=== PATIENT | male | born 1960 | race Caucasian/White ===

== ENCOUNTER → 2020-10-16 | Outpatient (CLI) | payer BC ==
--- NOTE | 2020-10-17 07:59 | XR ---
EXAMINATION TYPE: XR abdomen 2V DATE OF EXAM: 10/16/2020 COMPARISON: NONE HISTORY: Pain TECHNIQUE: Single supine KUB image of the abdomen is obtained FINDINGS: Small bowel demonstrates no evidence for dilatation or air fluid levels. Gas and fecal material is seen in non-distended colon. No convincing evidence for pneumoperitoneum. Moderate fecal stasis noted. No unusual calcifications. The lung bases are clear. The osseous structures are intact. IMPRESSION: 1. Overall nonobstructive bowel gas pattern.
== END | disposition home or self-care (01) ==
LOC: RADXRMAIN 15:53
PROVIDERS: ATTEND Family Medicine
DX: R11.0 Nausea (principal)
CPT/HCPCS: 74019

== ENCOUNTER → 2020-10-21 | Outpatient (CLI) | payer BC | END | disposition home or self-care (01) | LOC: LABWHC1 16:09 | PROVIDERS: ATTEND Family Medicine | DX: Z20.828 Contact with and (suspected) exposure to other viral communicable diseases (principal) | CPT/HCPCS: U0003; C9803 ==

== ENCOUNTER → 2022-06-18 | Outpatient (CLI) | payer BC ==
--- NOTE | 2022-06-18 14:05 | P.SLEEP ---
History of Present Illness DATE: 06/18/2022 CONSULTATION/NEW PATIENT EVALUATION HISTORY OF PRESENT ILLNESS/SLEEP-WAKE EVALUATION: 61year old gentleman had been evaluated in the sleep center for possible obstructive sleep apnea hypopnea syndrome.Patient has history of obstructive sleep apnea hypopnea syndrome diagnosed in another institution in 2019 at that time results of home sleep apnea test showed apnea-hypopnea index 25.7 later patient had the CPAP titration which was not fully effective then he was recommended to use BiPAP machine. Last testing done about 2 years ago. SLEEP SCHEDULE: Usually sleep schedule on [id number] PM to 6 AM[], during days o 11 PM to 8 AM[]. FALLING ASLEE Usually no problems with the falling asleep, although patient says TV set and bedroom[]. DURING SLEEPPatient snores and wakes up from sleep once with the nocturia[] No history of hypnogogical hallucinations, sleep paralysis, or cataplexy. DURING THE DAY/WAKE STAT In the morning patient wake up tired[]. [place] sleepiness scale 2. Patient may take 1 nap around known time.[]. PAST MEDICAL HISTOR Hypertension, arthritis[]. PAST SURGICAL HISTOR Appendectomy, tonsillectomy, cholecystectomy[]. MEDICATION Cozaar, Pravachol[]. SOCIAL HISTOR Negative for ] smoking, alcohol consumption occasional. FAMILY HISTORYHypertension, Parkinson disease, cancer[]. REVIEW OF SYSTEMSSnoring, awakenings from sleep, feeling sleepiness during the day[]. No fevers. No double vision. No recent chest pain. No shortness of breath. No abdominal pain. No bleeding episodes. No blood in urine. No seizure episodes. PHYSICAL EXAMINATION: GENERAL: A pleasant patient without any distress. VITAL SIGNS: 145/88] , 80] , 14] , weig 176.4 ] pounds, heig 5 foot 3 three-quarter inches []foot[]inches, body mass ind 30.4] . HEENT: PERRLA, EOMI. Evaluation of oropharynx showed tongue protrudes midline, low position of soft palate [place] 3, white pillars[]. NECK: Supple. No JVD. Thyroid is not palpabl 16 ] inches in circumference. LUNGS: Clear to percussion and to auscultation. Good air exchange. No wheezing or rhonchi. HEART: S1, S2 regular. No murmurs, gallops or rubs. ABDOMEN: Soft and nontender. Bowel sounds are present. No organomegaly appreciated. EXTREMITIES: No clubbing or cyanosis. STEEL LOADER: Awake, alert, and oriented x3. Cranial nerves 2 to 7 intact. There is no fasciculation or atrophy noted. No focal deficits observed. ASSESSMENT: Snoring, small oropharyngeal airspace. History of obstructive sleep apnea hypopnea syndrome diagnosed with another institution 2 years ago obstructive sleep apnea hypopnea syndrome[]. 2Mild obesity body mass index 30.4[]. 3. hypertension[]. 4. History of arthritis[]. 5.status post tonsillectomy[]. 6. Status post cholecystectomy[]. 7. Status post appendectomy[]. PLAN: 1. Home sleep apnea test for evaluation of patient's breathing during sleep at the present time . 2. CPAP/BiPAP titration if sleep study confirms obstructive sleep apnea- hypopnea syndrome. 3. Preferable position during sleep on the side. 4. No driving if patient feels any sleepiness. Patient is aware of civil and criminal liability for unsafe driving. 5. Sleep hygiene with regular sleep time for at least 7.5-8 hours. 6. Watching weight. Thank you very much for referring this patient for consultation. Sincerely, Reece Metcalf MD, PhD, FAASM. Diplomat of [place] [employer], Sleep Medicine Board by [place] [employer] [place] [employer] Medicine Micro Computer Data Processor of [facility] [place] Sleep Note - Sleep Note Sleep Note: Temperature: Pulse Rate: Respiratory Rate: Blood Pressure: SpO2: Height: Weight: BMI: Neck Circumference:
== END ==
LOC: SLEEP 13:16
PROVIDERS: ATTEND Internal Medicine
DX: G47.33 Obstructive sleep apnea (adult) (pediatric) (principal); E66.9 Obesity, unspecified; Z68.30 Body mass index [BMI] 30.0-30.9, adult; I10 Essential (primary) hypertension; M19.90 Unspecified osteoarthritis, unspecified site; Z90.09 Acquired absence of other part of head and neck; Z90.49 Acquired absence of other specified parts of digestive tract
CPT/HCPCS: 99211

== ENCOUNTER → 2022-09-24 | Outpatient (CLI) | payer BC ==
--- NOTE | 2022-09-24 15:12 | P.PN ---
Subjective DATE: 09/24/2022 FOLLOW UP VISIT. Patient with obstructive sleep apnea hypopnea syndrome return to sleep center for follow-up visit. Recently patient had sleep study which documented obstructive sleep apnea hypopnea syndrome. Patient was initiated on PAP therapy and today is first visit after treatment was started. I explained results of sleep study to the patient in details. Patient was able to use PAP equipment every night for the whole night. The patient does not have significant problems with the mask, PAP pressure and humidification. [place] sleepiness scale is 3, which is perfect. I checked information from PAP unit. PAP unit pressure 5-13 cm H2O. Usage is 97 % for more then 4 hours, average 7.5 hours per night. Leak is 2.3 l/m, which is in acceptable range. Apnea Hypopnea Index is for the last 9 days less than 3, 2 weeks ago was more then 10. MEDICATIONS:1. Pravachol 2. Cozaar During physical exam: GENERAL: A pleasant patient without any distress. VITAL SIGNS: BP 136/85, HR 78, RR 16, weight 182.6, temperature 97.5, oxygen saturation at room air 96. HEENT: PERRLA, EOMI.low position of soft palate, Mallapati 3 . NECK: Supple. No JVD. LUNGS: Clear to percussion and to auscultation. Good air exchange. No wheezing or rhonchi. HEART: S1, S2 regular. ABDOMEN: Soft and nontender. Slightly obese EXTREMITIES: No clubbing or cyanosis. SEMICONDUCTOR MANUFACTURING TECHNICIAN: Awake, alert, and oriented x3. No focal deficit. Impressions: 1. Obstructive sleep apnea-hypopnea syndrome. Patient demonstrated great compliance with treatment, benefiting from treatment. 2. Mild obesity. 3. Hypertension. 4. History of arthritis. 5. Status post tonsillectomy. 6. Status post cholecystectomy. 7. Status post appendectomy. Plan: 1. Continue using PAP equipment every night for the whole night. I increased range of pressure to 5-15 centimeters of water. 2. To change air filter at least 1-2 times per month. 3. PAP unit should stay lower then position of the head. 4. Advised patient to remove all remaining water from humidifier canister daily and make it dry after each usage. Refill canister with fresh distilled water before each usage. 5. Sleep hygiene with regular time in bed for at least 8 hours. 6. Precautions related to driving. No driving if feel any sleepiness. 7. I will maintain prescription for PAP supplies including mask, tube, filters. 8. Follow up visit in 6 months or earlier if patient has any problems. 9. Watching weight. Thank you very much for allowing me to participate in the management of your patient. Reece Metcalf MD, PhD, FAASM. Diplomat of [place] Board of [employer] Medicine, Sleep Medicine Board by [place] [employer] Medicine Laminator Preforms of [facility] [place]
== END ==
LOC: SLEEP 14:13
PROVIDERS: ATTEND Internal Medicine
DX: G47.33 Obstructive sleep apnea (adult) (pediatric) (principal); E66.8 Other obesity; I10 Essential (primary) hypertension; Z87.39 Personal history of other diseases of the musculoskeletal system and connective tissue; Z90.89 Acquired absence of other organs; Z90.49 Acquired absence of other specified parts of digestive tract
CPT/HCPCS: 99212

== ENCOUNTER → 2023-02-03 | Outpatient (CLI) | payer BC | END | disposition home or self-care (01) | LOC: LABWHC1 08:57 | PROVIDERS: ATTEND Urology | DX: R97.20 Elevated prostate specific antigen [PSA] (principal) | CPT/HCPCS: 36415; 84153 ==

== ENCOUNTER → 2023-04-06 | Outpatient (CLI) | payer BC ==
--- NOTE | 2023-04-06 17:37 | MR ---
EXAMINATION TYPE: MR Prostate wo/w con DATE OF EXAM: 04/06/2023 9:52 AM COMPARISON: None.. CLINICAL INDICATION:Male, 62 years old with history of R97.20 ELEVATED PSA LEVEL; TECHNIQUE: Multi-planar, multi-sequence imaging of the pelvis is performed prior to and following the uncomplicated administration of bolus intravenous gadolinium. CONTRAST: 9 ml Gadavist Interpretive Criteria: PI-RADS v2.1 SERUM PSA: 3.5 02/03/2023 4.2 12/09/2022 4.9 11/26/2022 SURGICAL PATHOLOGY: No data available. FINDINGS: Prostatic dimensions: 5.0 x 4.6 x 3.7 cm. "Bullet" Volume: 55.70 (PSA density=0.06 ng/mL/mL) CENTRAL GLAND (Central and Transition Zones/CZ+TZ): Multiple bilateral, heterogenous appearing hypertrophic stromal nodules, without suspicious lesion. M edian lobe hypertrophy with protrusion into the base of the bladder. (PI-RADS 2) PERIPHERAL ZONE (PZ): The lateral aspect of the peripheral zone in the left mid gland demonstrates restricted diffusion wit h high DWI and low ADC signal measuring approximately 20 x 7 mm. This is associated with low T2 signa l and there is some arterial enhancement within this region as well. No evidence for extracapsular ex tension. This lesion does extend along the capsule at least 8 mm laterally possibly even more given s lice selection SEMINAL VESICLES (SV): Symmetric and unremarkable. PERIPROSTATIC TISSUES: Unremarkable. LYMPH NODES: No enlarged pelvic lymph node. REMAINING PELVIS: Bladder wall is within normal limits given distention. No abnormal free or organized intrapelvic fluid collection. No pathologic bowel dilation or mural thickening. The right testis is not definitively visualized. Left fat-containing inguinal hernia. OSSEOUS STRUCTURES: No suspicious osseous abnormality. IMPRESSION: 1. PI-RADS 5 lesion left mid gland peripheral zone. Measuring up to 20 x 7 mm. 2. Moderate BPH, estimated gland volume 55.70 mL.
== END | disposition home or self-care (01) ==
LOC: RADMRIMAIN 03-17 07:36
PROVIDERS: ATTEND Urology
DX: N40.0 Benign prostatic hyperplasia without lower urinary tract symptoms (principal); N42.89 Other specified disorders of prostate; R97.20 Elevated prostate specific antigen [PSA]
CPT/HCPCS: 72197; A9585

== ENCOUNTER → 2023-04-08 | Outpatient (CLI) | payer BC ==
--- NOTE | 2023-04-08 11:21 | P.PN ---
Subjective DATE: 04/08/2023 FOLLOW UP VISIT. Patient with obstructive sleep apnea hypopnea syndrome return to sleep center for follow-up visit. Information from previous visit have been reviewed. Patient is using PAP equipment every night for the whole night, getting PAP supplies in time. The patient does not have significant problems with the mask, PAP unit and humidification. [place] sleepiness scale is 3, which is normal. I checked information from PAP unit. PAP unit pressure 5-15, average 13.8 cm H2O. Usage is 97 % for more then 4 hours, average 7 hours per night. Leak is 0.3 l/m, which is perfect. Apnea Hypopnea Index is 7.6, which is slightly increased. Patient has occasional episodes of snoring. He increased weight. MEDICATIONS:1. Cozaar 25 mg once a day 2. Pravachol 40 mg once a day 3. Inderal 20 mg once a day 4. Lexapro 10 mg once a day During physical exam: GENERAL: A pleasant patient without any distress. VITAL SIGNS: BP 113/74, HR 59, RR 20 , weight 198.2, temperature 96.8, oxygen saturation at room air 97 % . HEENT: PERRLA, EOMI.low position of soft palate, Mallapati 3 . NECK: Supple. No JVD. LUNGS: Clear to percussion and to auscultation. Good air exchange. No wheezing or rhonchi. HEART: S1, S2 regular. ABDOMEN: Soft and nontender. Slightly obese EXTREMITIES: No clubbing or cyanosis. TECHNOLOGY INTERN: Awake, alert, and oriented x3. No focal deficit. Impressions: 1. Obstructive sleep apnea-hypopnea syndrome. Patient demonstrated great compliance with treatment, benefiting from treatment. 2. Mild obesity, body mass index 34.1. Patient increased his weight on 16 pounds since previous visit. 3. Hypertension. 4. History of arthritis. 5. Status post tonsillectomy. 6. Status post cholecystectomy. 7. Status post appendectomy. I changed pressure in CPAP unit to the range 5-16 cm of water. I changed EPR from 0 to 3 centimeters of water. Plan: 1. Continue using PAP equipment every night for the whole night. 2. To change air filter at least 1-2 times per month. 3. PAP unit should stay lower then position of the head. 4. Advised patient to remove all remaining water from humidifier canister daily and make it dry after each usage. Refill canister with fresh distilled water before each usage. 5. Sleep hygiene with regular time in bed for at least 8 hours. 6. Precautions related to driving. No driving if feel any sleepiness. 7. I will maintain prescription for PAP supplies including mask, tube, filters. 8. Follow up visit in 6 months or earlier if patient has any problems. 9. Watching and losing weight. Thank you very much for allowing me to participate in the management of your patient. Reece Metcalf MD, PhD, FAASM. Diplomat of [place] Board of Sleep Medicine, Sleep Medicine Board by [place] [employer] Medicine Senior Corporate Recruiter of [facility] [place]
== END ==
LOC: SLEEP 11:02
PROVIDERS: ATTEND Internal Medicine
DX: G47.33 Obstructive sleep apnea (adult) (pediatric) (principal); E66.9 Obesity, unspecified; Z68.34 Body mass index [BMI] 34.0-34.9, adult; I10 Essential (primary) hypertension; M19.90 Unspecified osteoarthritis, unspecified site; Z98.890 Other specified postprocedural states; Z99.89 Dependence on other enabling machines and devices
CPT/HCPCS: 99212

== ENCOUNTER → 2023-05-07 | Outpatient (CLI) | payer BC ==
[2023-05-07 19:56] LABS: Blood Urea Nitrogen 10.9 mg/dL (9.0-27.0); Calcium 9.7 mg/dL (8.7-10.3); Carbon Dioxide 24.1 mmol/L (21.6-31.8); Chloride 104 mmol/L (96-109); Glucose 89 mg/dL (70-110); Potassium 4.7 mmol/L (3.5-5.5); Sodium 140 mmol/L (135-145)
[2023-05-07 21:37] LABS: Basophils # (A) 0.04 X 10*3/uL (0.00-0.10); Basophils % (A) 0.6 %; Eosinophils # (A) 0.17 X 10*3/uL (0.04-0.35); Eosinophils % (A) 2.4 %; HCT 47.5 % (39.6-50.0); HGB 15.5 d/dL (12.0-15.0); Lymphocytes # (A) 1.62 X 10*3/uL (0.90-5.00); Lymphocytes % (A) 22.9 %; MCHC 32.6 d/dL (32.0-37.0); MCV 98.1 FL (80.0-97.0); Mean Platelet Volume 11.1 FL (9.5-12.2); Monocytes # (A) 0.52 X 10*3/uL (0.20-1.00); Monocytes % (A) 7.4 %; NRBC Per 100 WBC 0 X 10*3/uL (0.00-0.01); Neutrophils # (A) 4.67 X 10*3/uL (1.80-7.70); Neutrophils % (A) 66.1 %; Platelet Count 239 X 10*3/uL (140-440); RBC 4.84 X 10*6/uL (4.40-5.60); RDW 12.4 % (11.5-14.5); WBC 7.06 X 10*3/uL (4.50-10.00)
== END | disposition home or self-care (01) ==
LOC: LABPAT 11:09
PROVIDERS: ATTEND Urology
DX: Z01.812 Encounter for preprocedural laboratory examination (principal); R97.20 Elevated prostate specific antigen [PSA]
CPT/HCPCS: 80048; 85025

== ENCOUNTER → 2023-05-13 | Day surgery (SDC) | payer BC ==
--- NOTE | 2023-05-10 08:46 | P.GSHP ---
History of Present Illness H&P Date: 05/10/23 Chief Complaint: Elevated PSA level The patient is a 62-year-old white male whose father had prostate cancer. The patient's PSA level in November 2022 was 4.20. A repeat PSA level in January 2023 was 3.5. An MRI of the prostate was obtained, revealing a prostate volume of 55.70 mL. A PI-RADS 5 lesion was seen within the left peripheral zone. - Cardiovascular Cardiovascular: Reports high blood pressure - Genitourinary (Male) Genitourinary: Reports urinary frequency, Denies dysuria, Denies hematuria Surgical - Exam - General well developed, well nourished, no distress - Neck no masses, trachea midline - Respiratory normal respiratory effort - Abdomen Abdomen: soft, non tender, no guarding, no rigid, no rebound - Genitourinary normal penis with no external lesions, testicles non-tender - Rectum Rectum: normal sphincter tone, no masses, other (Prostate moderately enlarged but smooth) - Psychiatric oriented to time, oriented to person, oriented to place, speech is normal, memory intact Assessment and Plan (1) Elevated prostate specific antigen [PSA] Status: Acute Code(s): R97.20 - ELEVATED PROSTATE SPECIFIC ANTIGEN [PSA] SNOMED Code(s): 255928457 Plan: MRI ultrasound fusion biopsies of the prostate. The procedure has been reviewed in detail with the patient. He has been made aware of potential risks, which include anesthesia, bleeding, and infection.
[2023-05-10 11:49] VITALS: BMI 31.6
[~2023-05-13] MED LIST: GENTAMICIN 110 MG in SODIUM CHLORIDE 0.9% 100 ML IVPB PRN
== END ==
LOC: OR 13:47
PROVIDERS: ATTEND Urology
DX: Z53.9 Procedure and treatment not carried out, unspecified reason (principal)

== ENCOUNTER 2023-06-17 10:31 | Day surgery (SDC) | payer BC ==
--- NOTE | 2023-06-16 07:36 | P.GSHP ---
History of Present Illness H&P Date: 06/16/23 Chief Complaint: Elevated PSA level The patient is a 62-year-old white male whose father had prostate cancer. The patient's PSA level in November 2022 was 4.20. A repeat PSA level in January 2023 was 3.5. An MRI of the prostate was obtained, revealing a prostate volume of 55.70 mL. A PI-RADS 5 lesion was seen within the left peripheral zone. - Cardiovascular Cardiovascular: Reports high blood pressure - Genitourinary (Male) Genitourinary: Reports urinary frequency, Denies dysuria, Denies hematuria Past Medical History Past Medical History: Cancer, GERD/Reflux, Hyperlipidemia, Hypertension, Sleep Apnea/CPAP/BIPAP Additional Past Medical History / Comment(s): ANDREI WITH DEVICE, BASAL CELL SKIN CANCER WITH REMOVAL, History of Any Multi-Drug Resistant Organisms: None Reported Past Surgical History: Appendectomy, Cholecystectomy, Tonsillectomy Additional Past Surgical History / Comment(s): Growth removed from vocal cord, COLONOSCOPY Past Anesthesia/Blood Transfusion Reactions: No Reported Reaction Additional Past Anesthesia/Blood Transfusion Reaction / Comment(s): Pt has never received blood. Smoking Status: Never smoker - Past Family History Mother Family Medical History: Cancer Additional Family Medical History / Comment(s): Breast cancer Father Family Medical History: Cancer Medications and Allergies Home Medications Medication Instructions Recorded Confirmed Type Escitalopram [Lexapro] 10 mg PO QAM 05/10/23 06/15/23 History Losartan [Cozaar] 25 mg PO QAM 05/10/23 06/15/23 History Multivit-Mins/Iron/Folic/Lycop 1 each PO QAM 05/10/23 06/15/23 History [Centrum Men's Tablet] Pravastatin Sodium [Pravachol] 40 mg PO QAM 05/10/23 06/15/23 History Propranolol [Inderal] 20 mg PO QAM 05/10/23 06/15/23 History Psyllium Husk (with Sugar) 1 dose PO PC-LUNCH PRN 05/11/23 06/15/23 History [Metamucil Powder] Allergies Allergy/AdvReac Type Severity Reaction Status Date / Time No Known Allergies Allergy Verified 06/15/23 12:18 Surgical - Exam - General well developed, well nourished, no distress - Respiratory normal respiratory effort - Abdomen Abdomen: soft, non tender, no guarding, no rigid, no rebound - Genitourinary normal penis with no external lesions, testicles non-tender - Rectum Rectum: normal sphincter tone, no masses, other (Prostate moderately enlarged and smooth) - Psychiatric oriented to time, oriented to person, oriented to place, speech is normal, memory intact Assessment and Plan (1) Elevated prostate specific antigen [PSA] Status: Acute Code(s): R97.20 - ELEVATED PROSTATE SPECIFIC ANTIGEN [PSA] SNOMED Code(s): 586581234 Plan: MRI ultrasound fusion biopsies of the prostate. The procedure has been reviewed in detail with the patient. He has been made aware of potential risks, which include anesthesia, bleeding, and infection.
[~2023-06-17 10:31] MED LIST changes: +LACTATED RINGERS 1,000 ML IV SCH
[2023-06-17 11:23] VITALS: RESP 16; TEMP 98.3
[2023-06-17] MEDS ORDERED: ONDANSETRON 4 MG/2 ML VIAL ONE (11:28)
[2023-06-17] MEDS ORDERED: ONDANSETRON 4 MG/2 ML VIAL IVP ONE (11:33)
[2023-06-17] MEDS ORDERED: DEXAMETHASONE SOD PHOSPHATE 4 MG/ML 1 ML VIAL IVP ONE (11:34)
[2023-06-17] MEDS ORDERED: MIDAZOLAM 2 MG/2 ML VIAL ONE (13:36)
[2023-06-17] MEDS ORDERED: PROPOFOL 10 MG/ML 20 ML VIAL IV ONE (13:36)
[2023-06-17] MEDS ORDERED: fentaNYL (PF) 50 MCG/ML 2 ML AMP ONE (13:36)
--- NOTE | 2023-06-17 14:09 | P.OP ---
Date of Procedure: 06/17/23 Preoperative Diagnosis: Elevated PSA Postoperative Diagnosis: Same Procedure(s) Performed: MRI ultrasound fusion biopsies of the prostate Anesthesia: MAC Surgeon: Justin Roy Estimated Blood Loss (ml): 5 IV fluids (ml): 500 Pathology: other (Prostate biopsies) Condition: stable Disposition: PACU Indications for Procedure: The patient is a 62-year-old white male whose father had prostate cancer. The patient's PSA level in November 2022 was 4.20. A repeat PSA level in January 2023 was 3.5. An MRI of the prostate was obtained, revealing a prostate volume of 55.70 mL. A PI-RADS 5 lesion was seen within the left peripheral zone. Operative Findings: Biopsies obtained from target lesion. Additional 12 biopsies obtained. Description of Procedure: The patient was taken to the operating room and placed in the left lateral decubitus position. The Formspring transrectal ultrasound probe was placed intrarectally. It was then placed within the stand of the [employer] MRI/TRUS Fusion for Prostate Biopsy system. The prostate was imaged in both the axial and sagittal planes, revealing a prostate volume of 42 mL. Using the Biopty gun, 3 biopsies were obtained from the target lesion within the left peripheral zone. The remaining biopsies of the peripheral zone were obtained utilizing a standard template. Once the procedure was completed, the ultrasound probe was removed. The patient tolerated the procedure well was taken to the recovery room stable condition.
[2023-06-17 14:26] VITALS: BP 117/74; PULSE 65
== END 2023-06-17 14:38 | disposition home or self-care (01) ==
LOC: OR 10:31
PROVIDERS: ATTEND Urology
DX: R97.20 Elevated prostate specific antigen [PSA] (principal); K21.9 Gastro-esophageal reflux disease without esophagitis; I10 Essential (primary) hypertension; E78.5 Hyperlipidemia, unspecified; G47.33 Obstructive sleep apnea (adult) (pediatric); Z85.828 Personal history of other malignant neoplasm of skin; Z90.89 Acquired absence of other organs; Z90.49 Acquired absence of other specified parts of digestive tract; Z79.899 Other long term (current) drug therapy
CPT/HCPCS: 55700; J2250; J1100; J0690; J2405; J3010; J1580; J2704; 88305

== ENCOUNTER → 2023-10-21 | Outpatient (CLI) | payer BC ==
--- NOTE | 2023-10-21 11:46 | P.PN ---
Subjective DATE: 10/21/2023 FOLLOW UP VISIT. Patient with obstructive sleep apnea hypopnea syndrome return to sleep center for follow-up visit. Information from previous visit have been reviewed. Patient is using PAP equipment every night for the whole night, getting PAP supplies in time. The patient does not have significant problems with the mask, PAP unit and humidification. [place] sleepiness scale is 3, which is perfect. I checked information from PAP unit and discussed it with patient. PAP unit pressure 5-16, average 11.2 cm H2O. Usage is 73 % for more then 4 hours, average 4.7 hours per night. Leak is perfect 0.2 l/m. Apnea Hypopnea Index is 4.5, which is normal. MEDICATIONS:1. Cozaar 25 mg once a day 2. Pravachole 40 mg once a day 3. Inderal 20 mg once a day 4. Lexapro 10 mg once a day During physical exam: GENERAL: A pleasant patient without any distress. VITAL SIGNS: BP 122/75, HR 65, RR 12 , weight 204.6, temperature 91.8, oxygen saturation at room air 96 % . HEENT: PERRLA, EOMI.low position of soft palate, Mallapati 3 . NECK: Supple. No JVD. LUNGS: Clear to percussion and to auscultation. Good air exchange. No wheezing or rhonchi. HEART: S1, S2 regular. ABDOMEN: Soft and nontender.[] EXTREMITIES: No clubbing or cyanosis. SMALL BUSINESS DIRECTOR: Awake, alert, and oriented x3. No focal deficit. Impressions: 1. Obstructive sleep apnea-hypopnea syndrome. Patient demonstrated great compliance with treatment, benefiting from treatment. 2. Obesity, patient increased weight of 6 pounds comparing with previous visit. 3. Hypertension. 4. History of arthritis. 5. Status post tonsillectomy. 6. Status post cholecystectomy. 7. Status post appendectomy. Plan: 1. Continue using PAP equipment every night for the whole night. 2. To change air filter at least 1-2 times per month. 3. PAP unit should stay lower then position of the head. 4. Advised patient to remove all remaining water from humidifier canister daily and make it dry after each usage. Refill canister with fresh distilled water before each usage. 5. Sleep hygiene with regular time in bed for at least 8 hours. 6. Precautions related to driving. No driving if feel any sleepiness. 7. I will maintain prescription for PAP supplies including mask, tube, filters. 8. Watching and losing weight. 9. Follow up visit in 6 months or earlier if patient has any problems. Thank you very much for allowing me to participate in the management of your patient. Reece Metcalf MD, PhD, FAASM. Diplomat of [place] Board of Sleep Medicine, Sleep Medicine Board by [place] Board of Internal Medicine Day Trader of [facility] [place]
== END ==
LOC: 3 N SLEEP 11:13
PROVIDERS: ATTEND Internal Medicine
DX: G47.33 Obstructive sleep apnea (adult) (pediatric) (principal); E66.9 Obesity, unspecified; I10 Essential (primary) hypertension; M19.90 Unspecified osteoarthritis, unspecified site; Z98.890 Other specified postprocedural states; Z99.89 Dependence on other enabling machines and devices; Z79.899 Other long term (current) drug therapy; Z90.49 Acquired absence of other specified parts of digestive tract; Z90.89 Acquired absence of other organs
CPT/HCPCS: 99212

== ENCOUNTER → 2023-11-02 | Outpatient (CLI) | payer BC | END | disposition home or self-care (01) | LOC: LABWHC1 10:39 | PROVIDERS: ATTEND Radiology Radiation Oncology | DX: C61 Malignant neoplasm of prostate (principal); Z85.828 Personal history of other malignant neoplasm of skin | CPT/HCPCS: 36415; 84153 ==

== ENCOUNTER → 2024-01-18 | Outpatient (CLI) | payer BC | END | disposition home or self-care (01) | LOC: LABWHC1 11:59 | PROVIDERS: ATTEND Radiology Radiation Oncology | DX: C61 Malignant neoplasm of prostate (principal); Z85.828 Personal history of other malignant neoplasm of skin | CPT/HCPCS: 36415; 84153 ==

== ENCOUNTER → 2024-06-07 | Outpatient (CLI) | payer BC ==
--- NOTE | 2024-06-07 19:50 | MR ---
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 The patient was then given intravenous contrast and multi planar, T1 fat-saturation images wer e obtained. IV Contrast: 9 cc Gadavist FINDINGS: The basal ganglia bilaterally appear within normal limits no abnormal postcontrast enhancem ent No evidence for restricted diffusion.. The mccloud-white junctions, ventricular system, basal cisterns appear unremarkable. Diffusion-weighted imaging shows no evidence of restricted diffusion to suggest acute/subacute infarct. Intracranial ar terial flow voids are maintained. Midline structures show no abnormality. Minimal scattered foci of h igh T2 signal intensity are seen within the periventricular white matter. The susceptibility weighted images do not reveal any evidence for micro-hemorrhage. After administration of gadolinium, no abnor mal enhancement is seen. The bone marrow signal is within normal limits. Paranasal sinuses and mastoid air cells: Mild scattered paranasal sinus disease. Visualized orbits: Orbital contents are intact. IMPRESSION: 1. No evidence of intracranial mass, acute/subacute infarct, or abnormal enhancement. The basal gangl ia appear within normal limits bilaterally. 2. Minimal nonspecific white matter changes, likely related to small vessel ischemic disease.
== END | disposition home or self-care (01) ==
LOC: RADMRIMAIN 18:19
PROVIDERS: ATTEND Psychiatry & Neurology Neurology
DX: I63.50 Cerebral infarction due to unspecified occlusion or stenosis of unspecified cerebral artery (principal)
CPT/HCPCS: 70553; A9585

== ENCOUNTER → 2024-06-08 | Outpatient (CLI) | payer BC ==
[2024-06-08 11:50] VITALS: BP 121/77; PULSE 51; RESP 16; TEMP 98.5
--- NOTE | 2024-06-08 12:31 | P.PROGSL ---
Subjective DATE: 06/08/2024 FOLLOW UP VISIT. Patient with obstructive sleep apnea hypopnea syndrome return to sleep center for follow-up visit. Information from previous visit have been reviewed. Patient is using PAP equipment every night for the whole night, getting PAP supplies in time. The patient does not have significant problems with the mask, PAP unit. Sometimes in the morning patient has some discharges from the nose. [place] sleepiness scale is 3, which is normal. I checked information from PAP unit. PAP unit pressure 5-16, average 14.3 cm H2O. Usage is 97% for more then 4 hours, average 7 hours per night. Leak is 0.2 l/m, which is in perfect range. Apnea Hypopnea Index is slightly increased to 7.6, which include centrals 2.9. MEDICATIONS have been reviewed, please see below. During physical exam: GENERAL: A pleasant patient without any distress. VITAL SIGNS: Please see below, weight is 202.2 lbs. HEENT: PERRLA, EOMI.low position of soft palate, Mallapati 3. NECK: Supple. No JVD. LUNGS: Clear to percussion and to auscultation. Good air exchange. No wheezing or rhonchi. HEART: S1, S2 regular. ABDOMEN: Soft and nontender. Slightly obese EXTREMITIES: No clubbing or cyanosis. INDUSTRIAL MAINTENANCE MECHANIC: Awake, alert, and oriented x3. No focal deficit. Impressions: 1. Obstructive sleep apnea-hypopnea syndrome. Patient demonstrated great compliance with treatment, benefiting from treatment. Few central apneas by reading from CPAP unit. 2. Obesity, BMI 35.5. 3. Hypertension. 4. History of arthritis. 5. Status post cholecystectomy. 6. Status post tonsillectomy. 7. Status post appendectomy. I teach patient how to adjust temperature in humidifier and in the tube. Temperature in humidifier was at the level 2 and it was increased to the level of 4 with a goal to prevent any discharges from the nose in the morning. Plan: 1. Continue using PAP equipment every night for the whole night. 2. Sleep hygiene with regular time in bed for at least 7.5-8 hours 3. PAP unit should stay lower then position of the head. 4. Advised patient to remove all remaining water from humidifier canister daily and make it dry after each usage. Refill canister with fresh distilled water before each usage. 5. Watching and losing weight. 6. Precautions related to driving. No driving if feel any sleepiness. 7. I will maintain prescription for PAP supplies including mask, tube, filters. 8. Follow up visit in 6 months or earlier if patient has any problems. Thank you very much for allowing me to participate in the management of your patient. Reece Metcalf MD, PhD, FAASM. Diplomat of [place] [employer], Sleep Medicine Board by [place] [employer] Corporate Trust Officer of [facility] [place] cc: Kieran Tuttle MD Objective - Vital Signs Vital Signs: Vital Signs Temp 98.5 F 06/08/24 11:49 Pulse 51 L 06/08/24 11:49 Resp 16 06/08/24 11:49 BP 121/77 06/08/24 11:49 Pulse Ox 96 06/08/24 11:49 FiO2 Intake & Output 06/07/24 06/08/24 06/08/24 18:59 06:59 18:59 Weight 91.682 kg Home Medications: Home Medications Medication Instructions Recorded Confirmed Type Escitalopram [Lexapro] 20 mg PO QAM 05/10/23 06/08/24 History Losartan [Cozaar] 25 mg PO QAM 05/10/23 06/15/23 History Multivit-Mins/Iron/Folic/Lycop 1 each PO QAM 05/10/23 06/15/23 History [Centrum Men's Tablet] Pravastatin Sodium [Pravachol] 40 mg PO QAM 05/10/23 06/08/24 History Propranolol [Inderal] 20 mg PO QAM 05/10/23 06/15/23 History Psyllium Husk (with Sugar) 1 dose PO PC-LUNCH PRN 05/11/23 06/15/23 History [Metamucil Powder] Ciprofloxacin HCl [Cipro] 500 mg PO BID 1 Days #5 tab 06/17/23 Rx Carbidopa-Levodopa ER 50-200Mg 50 - 200 mg PO DIRECTED 06/08/24 06/08/24 Hist ory [Sinemet CR 50-200 mg] Propranolol LA [Inderal LA] 60 mg PO DAILY 06/08/24 06/08/24 History
== END ==
LOC: 3 N SLEEP 11:16
PROVIDERS: ATTEND Internal Medicine
DX: G47.33 Obstructive sleep apnea (adult) (pediatric) (principal); E66.9 Obesity, unspecified; I10 Essential (primary) hypertension; Z87.39 Personal history of other diseases of the musculoskeletal system and connective tissue; Z90.49 Acquired absence of other specified parts of digestive tract; Z98.890 Other specified postprocedural states; Z90.89 Acquired absence of other organs; Z68.35 Body mass index [BMI] 35.0-35.9, adult; Z99.89 Dependence on other enabling machines and devices; Z79.899 Other long term (current) drug therapy
CPT/HCPCS: 99212

== ENCOUNTER → 2024-07-14 | Outpatient (CLI) | payer BC | END | disposition home or self-care (01) | LOC: LABWHC1 12:51 | DX: Z53.9 Procedure and treatment not carried out, unspecified reason (principal) ==

== ENCOUNTER → 2025-01-16 | Outpatient (CLI) | payer BC | END | disposition home or self-care (01) | LOC: LABWHC1 12:23 | PROVIDERS: ATTEND Radiology Radiation Oncology | DX: C61 Malignant neoplasm of prostate (principal); Z85.828 Personal history of other malignant neoplasm of skin | CPT/HCPCS: 36415; 84153 ==

== ENCOUNTER → 2025-01-19 | Outpatient (CLI) | payer BC ==
--- NOTE | 2025-01-21 16:16 | NM ---
EXAMINATION TYPE: NM DatScan Brain SPECT DATE OF EXAM: 01/19/2025 COMPARISON: MRI Brain 06/07/2024. CLINICAL INDICATION: Male, 64 years old with history of G20.C PARKINSONISM, UNSPECIFIED; TECHNIQUE: 10 drops of Lugol's solution was administered 1 hour prior to injection as a thyroid bloc kerry agent. After the administration of 4.48 mCi I-123 Ioflupane DaTscan. Images obtained 3 hours p ost injection. SPECT images of the brain were acquired with axial and coronal reconstructions. FINDINGS: The DaTSCAN demonstrates significantly reduced uptake of tracer to the left striatum and possibly a minor reduction to the right. IMPRESSION: This indicates the loss of the pre-synaptic dopaminergic terminals and is usually supportive of a cli nical diagnosis of either idiopathic PD or PS. [facility], , 01/21/2025 4:14 PM
== END | disposition home or self-care (01) ==
LOC: RADNMMAIN 11:02
PROVIDERS: ATTEND Psychiatry & Neurology Neurology
DX: G20.C Parkinsonism, unspecified (principal)
CPT/HCPCS: 78803; A9584

== ENCOUNTER → 2025-02-01 | Outpatient (CLI) | payer BC ==
[2025-02-01 11:45] VITALS: BP 119/71; PULSE 57; RESP 18; TEMP 98
--- NOTE | 2025-02-01 13:28 | P.PROGSL ---
Subjective DATE: 02/01/2025 FOLLOW UP VISIT. Patient with obstructive sleep apnea hypopnea syndrome return to sleep center for follow-up visit. Information from previous visit have been reviewed. Patient is using PAP equipment every night for the whole night, getting PAP supplies in time. The patient does not have significant problems with the mask, PAP unit and humidification. [place] sleepiness scale is 1. I checked information from PAP unit. PAP unit pressure 5-16, average 11.6 cm H2O. Usage is 77% for more then 4 hours, average 5 hours per night. Leak is 0.2 l/m, which is in perfect range. Apnea Hypopnea Index is 4.1, which is normal. MEDICATIONS have been reviewed, please see below. During physical exam: GENERAL: A pleasant patient without any distress. VITAL SIGNS: Please see below, weight is 202.2 lbs. HEENT: PERRLA, EOMI.low position of soft palate, Mallapati 3. NECK: Supple. No JVD. LUNGS: Clear to percussion and to auscultation. Good air exchange. No wheezing or rhonchi. HEART: S1, S2 regular. ABDOMEN: Soft and nontender.[] EXTREMITIES: No clubbing or cyanosis. LEATHER SHAVER: Awake, alert, and oriented x3. No focal deficit. Impressions: 1. Obstructive sleep apnea-hypopnea syndrome. Patient demonstrated great compliance with treatment, benefiting from treatment. 2. Obesity, BMI 35.0. 3. Hypertension. 4. History of arthritis. 5. Status post tonsillectomy. 6. Status post appendectomy. 7. Status post cholecystectomy. Plan: 1. Continue using PAP equipment every night for the whole night. 2. Sleep hygiene with regular time in bed for at least 7.5-8 hours 3. PAP unit should stay lower then position of the head. 4. Advised patient to remove all remaining water from humidifier canister daily and make it dry after each usage. Refill canister with fresh distilled water before each usage. 5. Watching and losing weight. 6. Precautions related to driving. No driving if feel any sleepiness. 7. I will maintain prescription for PAP supplies including mask, tube, filters. 8. Follow up visit in 8 months or earlier if patient has any problems. Thank you very much for allowing me to participate in the management of your patient. Reece Metcalf MD, PhD, FAASM. Diplomat of [place] [employer], Sleep Medicine Board by [place] [employer] Environmental Intern of [facility] [place] Objective - Vital Signs Vital Signs: Vital Signs Temp 98.0 F 02/01/25 11:42 Pulse 57 L 02/01/25 11:42 Resp 18 02/01/25 11:42 BP 119/71 02/01/25 11:42 Pulse Ox 97 02/01/25 11:42 FiO2 Intake & Output 01/31/25 02/01/25 02/01/25 18:59 06:59 18:59 Weight 91.626 kg Home Medications: Home Medications Medication Instructions Recorded Confirmed Type Escitalopram [Lexapro] 20 mg PO QAM 05/10/23 02/01/25 History Losartan [Cozaar] 25 mg PO QAM 05/10/23 06/15/23 History Multivit-Mins/Iron/Folic/Lycop 1 each PO QAM 05/10/23 06/15/23 History [Centrum Men's Tablet] Pravastatin Sodium [Pravachol] 40 mg PO QAM 05/10/23 02/01/25 History Propranolol [Inderal] 20 mg PO QAM 05/10/23 06/15/23 History Psyllium Husk (with Sugar) 1 dose PO PC-LUNCH PRN 05/11/23 06/15/23 History [Metamucil Powder] Ciprofloxacin HCl [Cipro] 500 mg PO BID 1 Days #5 tab 06/17/23 Rx Carbidopa-Levodopa ER 50-200Mg 50 - 200 mg PO TID 06/08/24 02/01/25 History [Sinemet CR 50-200 mg] Propranolol LA [Inderal LA] 60 mg PO DAILY 06/08/24 02/01/25 History Carbidopa-Levodopa 25-100 mg 25 - 100 mg PO TID 02/01/25 02/01/25 History [Sinemet 25-100 mg]
== END ==
LOC: 3 N SLEEP 11:26
PROVIDERS: ATTEND Internal Medicine
DX: G47.33 Obstructive sleep apnea (adult) (pediatric) (principal); E66.9 Obesity, unspecified; I10 Essential (primary) hypertension; Z68.35 Body mass index [BMI] 35.0-35.9, adult; Z87.39 Personal history of other diseases of the musculoskeletal system and connective tissue; Z90.89 Acquired absence of other organs; Z90.49 Acquired absence of other specified parts of digestive tract
CPT/HCPCS: 99212